=== PATIENT | female | born 2000 | race African-American/Black ===

== ENCOUNTER → 2022-05-13 16:28 | Outpatient (CLI) | payer MEDICAID, SELFPAY ==
[2022-05-13 19:40] LABS: Urine N gonorrhoeae NOT DETECTED
[2022-05-13 20:11] LABS: Urine Chlamydia DETECTED
[2022-05-21 15:12] LABS: Urine N gonorrhoeae NOT DETECTED
[2022-05-21 15:47] LABS: Urine Chlamydia NOT DETECTED
== END ==
PROVIDERS: Nurse Practitioner Family; PCP Internal Medicine; Visit Provider Registered Nurse
DX: N89.8 Other specified noninflammatory disorders of vagina (principal); R30.0 Dysuria
CPT/HCPCS: 81002; 81025; 87077; 87086; 87186; 87210; 87491; 87591

== ENCOUNTER 2022-06-16 21:26 | Emergency (ER) | payer MEDICAID, SELFPAY ==
[2022-06-16 21:40] VITALS: BP 117/59; PULSE 84; RESP 20; TEMP 36.6; O2SAT 100; BMI 20.5
[2022-06-16 22:00] VITALS: BP 103/70; PULSE 86; RESP 16; O2SAT 99
[2022-06-16 22:22] LABS: Add Manual Diff / Slide Review NO; Basophils Absolute Auto 100 /uL (0-100); Basophils Percent Auto 1.2 % (0-2); Eosinophils Absolute Auto 200 /uL (0-450); Eosinophils Percent Auto 2.8 % (2-4); Hematocrit 34.3 % (36-46); Hemoglobin 11.2 g/dL (12.0-16.0); Lymphocytes Absolute Auto 2900 /uL (1100-4500); Lymphocytes Percent Auto 42.4 % (25-40); Mean Corpuscular HGB Conc 32.6 % (30-36); Mean Corpuscular Hemoglobin 25.3 PG (26-34); Mean Corpuscular Volume 77.4 fL (80-100); Monocytes Absolute Auto 600 /uL (0-900); Monocytes Percent Auto 8.8 % (3-14); Neutrophils Absolute Auto 3100 /uL (1500-7000); Neutrophils Percent Auto 44.8 % (50-75); Platelet Count 136 X10^3/uL (150-400); Red Blood Cell Count 4.42 X10^6/uL (4.0-5.2); Red Cell Distribution Width 16.4 % (11.6-14.8); White Blood Cell Count 6.9 X10^3/uL (4.5-11.0)
[2022-06-16 22:30] VITALS: BP 102/67; PULSE 75; PULSE 86; RESP 18; RESP 20; O2SAT 100; O2SAT 99
--- NOTE | 2022-06-16 22:30 | DI.US.S_ITS ---
PROCEDURE: US PELVIC COMPLETE INDICATIONS: BLEEDING TECHNIQUE: Real-time scanning was performed of the pelvic organs, with image documentation. Additional endovaginal scanning was necessary due to incomplete visualization of the adnexal and endometrial structures by transabdominal scanning. COMPARISON: None. FINDINGS: Uterus: Uterus is anteverted and normal in size at 4.1 x 5.4 x 8.7 cm. The myometrium is mildly heterogeneous. The endometrium measures 12.9 mm combined thickness. There is no sign of intrauterine gestation. Ovaries: The right ovary measures 3.0 x 1.6 x 2.7 cm, with a calculated ovarian volume of 6.7 cc. The left ovary measures 7.2 x 6.6 x 6.8 cm, with a calculated ovarian volume of 169 cc. The ovaries have a normal sonographic appearance except for presence of a large simple cyst at the left ovary that measures up to 6.6 x 5.7 x 6.6 cm. Less than 12 follicles can be seen in each ovary. No adnexal masses are seen. Other: No pathologic free abdominal or pelvic fluid. IMPRESSION: Dominant left ovarian cyst measuring up to 6.6 cm in maximal dimension enlarges the left ovary, there is intact vascularity to the ovaries bilaterally. No sign of intrauterine gestation at this time. No visualized evidence of ectopic also. Therefore, please correlate with quantitative beta HCG value to determine whether an intrauterine gestation should be visible. We strive to produce accurate, complete, and clear reports of imaging services. To assist us in improving patient care, this report was composed using standard report templates and voice recognition software. Therefore, it may contain abnormal punctuation, insertions and/or omissions. Occasional wrong-word or sound-alike substitutions may occur. Though we review the report and make efforts to correct it, we do recommend that the report be read carefully in proper context to recognize any text inaccuracies. Dictated by: Ji John M.D. on 06/16/2022 at 23:30 Approved by: Ji John M.D. on 06/16/2022 at 23:33
--- NOTE | 2022-06-16 22:39 | PC.NURSE ---
Patient reports last period approximately April 28-, spotting throughout May, onset of heavier bleeding since yesterday. Today she noticed clots, has gone through 5 maxi pads since waking this morning and 1 per/hour prior to arrival. Denies dizziness/CP/SOB. WIC told her yesterday she was approximately 7 weeks . Recently treated for Chlamydia, states her most recent test was negative.
[2022-06-16 22:42] LABS: Alanine Aminotransferase 13 IU/L (<35); Albumin 4.4 g/dL (3.5-5.0); Albumin Globulin Ratio 1.3 (1.0-2.8); Alkaline Phosphatase 71 U/L (38-126); Aspartate Aminotransferase 33 IU/L (14-36); BUN Creatinine Ratio 12.9 (6-22); Blood Urea Nitrogen 8 mg/dL (7-17); Calcium 8.8 mg/dL (8.4-10.2); Carbon Dioxide 25 mmol/L (22-32); Chloride 105 mmol/L (98-107); Estimated Glomerular Filt Rate > 60 mL/min (>60); Globulin 3.4 g/dL (1.7-4.1); Glucose 95 mg/dL (70-100); HEMOLYSIS 21 (0-50); Potassium 3.6 mmol/L (3.4-5.1); Sodium 140 mmol/L (137-145); Total Protein 7.8 g/dL (6.3-8.2)
[2022-06-16 22:51] LABS: Appearance Urine UA TURBID; Color Urine UA RED; Glucose Urine UA NEGATIVE (Negative); Protein Urine UA 3+ (Negative); Specific Gravity Urine UA 1.025 (1.000-1.035); pH Urine UA 9 (4.5-8.0)
[2022-06-16 22:52] LABS: Bilirubin Urine UA NEGATIVE (NEGATIVE); Nitrite Urine UA NEGATIVE (Negative); Occult Blood Urine UA 3+ (Negative)
[2022-06-16 22:53] LABS: Bacteria Urine None Seen; RBC Urine >100/HPF (0-5/HPF); Urobilinogen Urine UA Normal E.U./dL (0.2); WBC Urine 10-30/HPF (0-5/HPF)
[2022-06-16 22:54] LABS: Culture Indicated Urine Cult Not Indicated
[2022-06-16 22:59] LABS: HCG Quantitative /Beta subunit 3496.6 mIU/mL
[2022-06-16 23:00] VITALS: BP 132/76; PULSE 90; RESP 16; O2SAT 99
--- NOTE | 2022-06-16 23:15 | ED.PREGNANCY ---
HPI - General Chief complaint: Vaginal Bleeding Stated complaint: thinks she is miscarrying Time Seen by Provider: 06/16/22 22:30 Source: patient Mode of arrival: Ambulatory Limitations: no limitations History of Present Illness HPI Narrative: Patient is a 22-year-old female presenting with vaginal bleeding she states she is currently 7 weeks . She says she found out just a couple of days ago she started having heavy bleeding 3rd day. She went through about 3 pads in 1 hour she has had some large clots she thought she saw some tissue being passed as well. No dizziness or lightheadedness. She said she was seen in a walk-in clinic where she had an ultrasound however does not appear to be here. She was previously diagnosed with chlamydia infection on 05/13/2022, at that time had a negative test. Related Data Home Medications Medication Instructions Recorded Confirmed No Known Home Medications 06/15/22 06/15/22 Allergies Allergy/AdvReac Type Severity Reaction Status Date / Time No Known Drug Allergies Allergy Verified 06/16/22 21:40 Review of Systems Review of Systems Narrative: GENERAL: Denies chills, fatigue, malaise, fever, sweats, travel HEENT: Denies sinus pain, ear pain, sore throat, difficulty swallowing, neck pain RESPIRATORY: Denies dyspnea, cough, wheezing, hemoptysis, sputum. CARDIOVASCULAR: Denies chest pain, palpitations, orthopnea, edema GASTROINTESTINAL: Denies nausea, vomiting, abdominal pain, diarrhea, constipation, melena. : Denies dysuria, frequency, incontinence, hematuria, urinary retention, flank pain. [employer]: See HPI MUSCULOSKELETAL: Denies weakness, joint pain, or bony pain SKIN: No rash, no erythema, no pruritus NEUROLOGIC: Denies weakness, dizziness, headache, numbness, change in speech, confusion PSYCHIATRIC: No concerning psychosocial issues. 12 point review of systems is negative except for those stated above and HPI Exam Initial Vital Signs Initial Vital Signs: Vital Signs Temperature 98 F 06/16/22 21:40 Pulse Rate 84 06/16/22 21:40 Respiratory Rate 20 06/16/22 21:40 Blood Pressure 117/59 L 06/16/22 21:40 Pulse Oximetry 100 06/16/22 21:40 Oxygen Delivery Method 06/16/22 21:40 GENERAL: Alert pleasant 22 year old female no acute distress HEENT: Head atraumatic,EOMI, pupils reactive, face symmetric, [moist] mucous membranes CARDIOVASCULAR: Regular rate and rhythm without murmurs, rubs or gallops. RESPIRATORY: Breath sounds equal bilaterally, no wheezes rales or rhonchi. ABDOMEN: Soft, nontender. Normoactive bowel sounds all 4 quadrants. No guarding or rebound. PELVIC: Normal external exam vaginal vault he does have blood and some clots but not excessive suction is used cervix is open no tissue seen blood clot noted at os EXTREMITIES: Normal range of motion, no clubbing or edema. Neurovascularly intact NEUROLOGICAL: Alert and oriented x4. SKIN: Warm, dry, no laceration, no petechiae, no rashes or lesions. Course Orders Ordered: ED Orders 06/16/22 21:49 Urinalysis and Microscopic Stat 06/16/22 22:00 ABO RH Type Stat Complete Blood Count AUTO DIFF Stat Comprehensive Metabolic Panel Stat HCG Quantitative /Beta subunit Stat 06/16/22 22:30 US pelvic complete Stat Vital Signs Vital signs: Vital Signs - 8 hr 06/16/22 21:40 06/16/22 22:30 06/16/22 22:00 Temperature 98 F Pulse Rate 84 86 86 Respiratory Rate 20 20 16 Blood Pressure 117/59 L 102/67 103/70 Pulse Oximetry 100 100 99 Oxygen Delivery Method Room Air Room Air Room Air 06/16/22 22:30 06/16/22 23:00 06/16/22 23:30 Temperature Pulse Rate 75 90 86 Respiratory Rate 18 16 18 Blood Pressure 102/67 132/76 Pulse Oximetry 99 99 99 Oxygen Delivery Method Room Air Room Air Room Air MDM - OB/Uterine Contractions Lab Data Result diagrams: 06/16/22 22:00 06/16/22 22:00 Labs: Lab Results 06/16/22 06/16/22 06/16/22 Range/Units 21:49 22:00 22:00 WBC 6.9 (4.5-11.0) X10^3/uL RBC 4.42 (4.0-5.2) X10^6/uL Hgb 11.2 L (12.0-16.0) g/dL Hct 34.3 L (36-46) % MCV 77.4 L (80-100) fL MCH 25.3 L (26-34) PG MCHC 32.6 (30-36) % RDW 16.4 H (11.6-14.8) % Plt Count 136 L (150-400) X10^3/uL Neut % (Auto) 44.8 L (50-75) % Lymph % (Auto) 42.4 H (25-40) % [place] % (Auto) 8.8 (3-14) % Eos % (Auto) 2.8 (2-4) % Baso % (Auto) 1.2 (0-2) % Neut # (Auto) 3100 (5188-0903) /uL Lymph # (Auto) 2900 (3796-1373) /uL [place] # (Auto) 600 (0-900) /uL Eos # (Auto) 200 (0-450) /uL Baso # (Auto) 100 (0-100) /uL Sodium 140 (137-145) mmol/L Potassium 3.6 (3.4-5.1) mmol/L Chloride 105 (98-107) mmol/L Carbon Dioxide 25 (22-32) mmol/L BUN 8 (7-17) mg/dL Creatinine 0.62 (0.52-1.04) mg/dL Estimated GFR > 60 (>60) mL/min BUN/Creatinine Ratio 12.9 (6-22) Glucose 95 (70-100) mg/dL Calcium 8.8 (8.4-10.2) mg/dL Total Bilirubin 1.0 (0.2-1.3) mg/dL AST 33 (14-36) IU/L ALT 13 (<35) IU/L Alkaline Phosphatase 71 (38-126) U/L Total Protein 7.8 (6.3-8.2) g/dL Albumin 4.4 (3.5-5.0) g/dL Globulin 3.4 (1.7-4.1) g/dL Albumin/Globulin Ratio 1.3 (1.0-2.8) HCG, Quant 3496.6 mIU/mL Urine Color Red Urine Appearance Turbid Urine pH 9 H (4.5-8.0) Ur Specific [place] 1.025 (1.000-1.035) Urine Protein 3+ H (Negative) Urine Glucose (UA) Negative (Negative) g/dL Urine Ketones Not Reportable Urine Occult Blood 3+ H (Negative) Urine Nitrate Negative (Negative) Urine Bilirubin Negative (NEGATIVE) Urine Urobilinogen Normal (0.2) E.U./dL Ur Leukocyte Esterase Not Reportable Urine RBC >100/hpf H (0-5/HPF) Urine WBC 10-30/hpf H (0-5/HPF) Urine Bacteria None seen (None) Ur Culture Indicated? Cult not indicated Micro UA Comment * Blood Type 06/16/22 Range/Units 22:00 WBC (4.5-11.0) X10^3/uL RBC (4.0-5.2) X10^6/uL Hgb (12.0-16.0) g/dL Hct (36-46) % MCV (80-100) fL MCH (26-34) PG MCHC (30-36) % RDW (11.6-14.8) % Plt Count (150-400) X10^3/uL Neut % (Auto) (50-75) % Lymph % (Auto) (25-40) % [place] % (Auto) (3-14) % Eos % (Auto) (2-4) % Baso % (Auto) (0-2) % Neut # (Auto) (3792-0600) /uL Lymph # (Auto) (7968-9749) /uL [place] # (Auto) (0-900) /uL Eos # (Auto) (0-450) /uL Baso # (Auto) (0-100) /uL Sodium (137-145) mmol/L Potassium (3.4-5.1) mmol/L Chloride (98-107) mmol/L Carbon Dioxide (22-32) mmol/L BUN (7-17) mg/dL Creatinine (0.52-1.04) mg/dL Estimated GFR (>60) mL/min BUN/Creatinine Ratio (6-22) Glucose (70-100) mg/dL Calcium (8.4-10.2) mg/dL Total Bilirubin (0.2-1.3) mg/dL AST (14-36) IU/L ALT (<35) IU/L Alkaline Phosphatase (38-126) U/L Total Protein (6.3-8.2) g/dL Albumin (3.5-5.0) g/dL Globulin (1.7-4.1) g/dL Albumin/Globulin Ratio (1.0-2.8) HCG, Quant mIU/mL Urine Color Urine Appearance Urine pH (4.5-8.0) Ur Specific [place] (1.000-1.035) Urine Protein (Negative) Urine Glucose (UA) (Negative) g/dL Urine Ketones Urine Occult Blood (Negative) Urine Nitrate (Negative) Urine Bilirubin (NEGATIVE) Urine Urobilinogen (0.2) E.U./dL Ur Leukocyte Esterase Urine RBC (0-5/HPF) Urine WBC (0-5/HPF) Urine Bacteria (None) Ur Culture Indicated? Micro UA Comment Blood Type B Positive Imaging Data US - OB: Radiologist's Impression: Patient: Malena Craig MR#: [id number] : 2000 Acct:[id number] Age/Sex: 22 / F Date of Service: 06/16/22 Loc: ED Accession Number: [id number] ?? Procedure: US pelvic complete Ordering Provider: Rosalia Danielle D.O. PROCEDURE:? US PELVIC COMPLETE ? INDICATIONS:? BLEEDING ? TECHNIQUE:? Real-time scanning was performed of the pelvic organs, with image documentation.? Additional endovaginal scanning was necessary due to incomplete visualization of the adnexal and endometrial structures by transabdominal scanning.? ? COMPARISON:? None. ? FINDINGS:? ?? Uterus:? Uterus is anteverted and normal in size at 4.1 x 5.4 x 8.7 cm. The myometrium is mildly heterogeneous. ? The endometrium measures 12.9 mm combined thickness.? There is no sign of intrauterine gestation. ? Ovaries:? The right ovary measures 3.0 x 1.6 x 2.7 cm, with a calculated ovarian volume of 6.7 cc. The left ovary measures 7.2 x 6.6 x 6.8 cm, with a calculated ovarian volume of 169 cc. The ovaries have a normal sonographic appearance except for presence of a large simple cyst at the left ovary that measures up to 6.6 x 5.7 x 6.6 cm. Less than 12 follicles can be seen in each ovary.? No adnexal masses are seen. ? Other:? No pathologic free abdominal or pelvic fluid. ? ? IMPRESSION:? Dominant left ovarian cyst measuring up to 6.6 cm in maximal dimension enlarges the left ovary, there is intact vascularity to the ovaries bilaterally.? No sign of intrauterine gestation at this time.? No visualized evidence of ectopic also.? Therefore, please correlate with quantitative beta HCG value to determine whether an intrauterine gestation should be visible. ? We strive to produce accurate, complete, and clear reports of imaging services. To assist us in improving patient care, this report was composed using standard report templates and voice recognition software. Therefore, it may contain abnormal punctuation, insertions and/or omissions. Occasional wrong-word or sound-alike substitutions may occur. Though we review the report and make efforts to correct it, we do recommend that the report be read carefully in proper context to recognize any text inaccuracies. ? ? Dictated by: Ji John M.D. on 06/16/2022 at 23:30 ? ? Approved by: Ji John M.D. on 06/16/2022 at 23:33 ? MDM Narrative Medical decision making narrative: Patient is having a miscarriage. She is having some bleeding with some blood clots but not significant at this time. Vitals are stable and within normal limits. She is given strict return precautions. Discharge Plan Departure Patient Disposition: Home Clinical Impression: Incomplete miscarriage Instructions: Dealing With Miscarriage, DI for Miscarriage Activity Restrictions/Additional Instructions: *You have been diagnosed with miscarriage *What to do: Expect to have cramping and bleeding. Hopefully the worst of it is over. However you will still definitely past clots. *Continue to take medications as directed Ibuprofen 600 mg every 6 hours if needed for pain Tylenol 1000 mg every 6 hours if needed for pain *Follow up with your primary care provider in 2-3 days or call [phone] *Return to ER if you should have clots bigger than a golf ball more than to super pads in 1 hour, increased pain or any new, worsening or concerning symptoms Prescriptions: No Action No Known Home Medications Referrals: Tierney Acevedo ARNP [Primary Care Provider] - Stand Alone Forms: Work Release Note Visit Report Forms: Patient Portal/API
[2022-06-16 23:30] VITALS: PULSE 86; RESP 18; O2SAT 99
== END 2022-06-17 00:35 | disposition home or self-care (01) ==
PROVIDERS: Emergency Provider Emergency Medicine; PCP Internal Medicine
DX: O03.4 Incomplete spontaneous abortion without complication (principal)
CPT/HCPCS: 36415; 76830; 76856; 80053; 81001; 84702; 85025; 86900; 86901; 93976; 99284

== ENCOUNTER → 2022-06-21 11:19 | Outpatient (CLI) | payer MEDICAID, SELFPAY ==
[2022-06-21 15:47] LABS: HCG Quantitative /Beta subunit 190.8 mIU/mL
[2022-06-21 17:48] LABS: Urine Chlamydia DETECTED; Urine N gonorrhoeae NOT DETECTED
== END ==
PROVIDERS: PCP Internal Medicine; Referring Provider Obstetrics & Gynecology; Visit Provider Obstetrics & Gynecology
DX: O20.9 Hemorrhage in early pregnancy, unspecified (principal); Z20.2 Contact with and (suspected) exposure to infections with a predominantly sexual mode of transmission
CPT/HCPCS: 36415; 84702; 87491; 87591

== ENCOUNTER → 2022-07-08 14:40 | Outpatient (CLI) | payer MEDICAID, SELFPAY ==
[2022-07-08 16:58] LABS: Urine N gonorrhoeae NOT DETECTED
[2022-07-08 17:17] LABS: Urine Chlamydia NOT DETECTED
== END ==
PROVIDERS: PCP Internal Medicine; Visit Provider Obstetrics & Gynecology
DX: Z86.19 Personal history of other infectious and parasitic diseases (principal)
CPT/HCPCS: 87491; 87591